=== PATIENT | female | born 1945 | race Caucasian/White ===

== ENCOUNTER 2016-09-06 12:44 | Inpatient (IN) | payer MEDICARE ==
[~2016-09-06] VITALS: Ht 152.4 cm; Wt 65.7 kg
[~2016-09-06 12:44] MED LIST: BUDE180H IH; DICL-290 PO; DOCU250C91 PO; FOLI1TAB15 PO; FURO20 PO; PANT40TA PO; POTA10TA14 PO; THERAGRAN M1 TA1 PO
[2016-09-06 13:12] LABS: GLUCOSE,POINT OF CARE 108 MG/DL (70-110)
[2016-09-06] MEDS ORDERED: DiphenhydrAMINE HCL 50 MG/ML VIAL IM ONE (14:45)
[2016-09-06] MEDS ORDERED: HALOPERIDOL LACTATE 5 MG/ML VIAL IM ONE (14:45)
[2016-09-06] MEDS ORDERED: LORazepam 2 MG/ML VIAL IM ONE (14:45)
[2016-09-06 15:18] LABS: BASOPHILS % (AUTO) 1.1 % (0.0-2.0); EOSINOPHILS # (AUTO) 0.22 K/uL (0.00-0.70); EOSINOPHILS % (AUTO) 2.54 % (1.0-6.0); HEMATOCRIT 42.6 % (36-46); HEMOGLOBIN 14.4 g/dL (12.0-16.0); LYMPHOCYTES # (AUTO) 1.8 K/uL (1.0-4.8); LYMPHOCYTES % (AUTO) 20.4 % (22.0-44.0); MEAN CORPUSCULAR HEMOGLOBIN 30.8 pg (26.0-34.0); MEAN CORPUSCULAR HGB CONC 33.8 G/dL (31.0-37.0); MEAN CORPUSCULAR VOLUME 91 fL (80-100); MONOCYTES % (AUTO) 10.9 % (2.0-9.0); NEUTROPHILS # (AUTO) 5.7 K/uL (1.8-7.7); PLATELET COUNT (AUTO) 238 K/uL (150-450); RED BLOOD CELL COUNT(AUTO) 4.67 MIL/uL (4.00-5.20); RED CELL DISTRIBUTION WIDTH 14.5 % (11.5-14.5); WHITE BLOOD COUNT (AUTO) 8.7 K/uL (4.5-11.0)
[2016-09-06 15:21] LABS: ANION GAP 9 mmol/L (8-16); CALCIUM, TOTAL 8.5 mg/dL (8.8-10.5); CARBON DIOXIDE 29 mmol/L (22-29); CHLORIDE 105 mmol/L (98-107); CREATININE 0.64 mg/dL (0.60-1.30); GLOMERULAR FILTR. RATE CALC > 60 mL/min (>60); POTASSIUM 3.4 mmol/L (3.5-5.1); SODIUM SERUM 143 mmol/L (136-145); UREA NITROGEN, BLOOD 13 mg/dL (7-18)
[2016-09-06 15:27] LABS: ALANINE AMINOTRANSFERASE 6 U/L (12-78); ALBUMIN 3.3 g/dL (3.4-5.0); ASPARTATE AMINOTRANSFERASE 26 U/L (15-37); BILIRUBIN,TOTAL 0.7 mg/dL (0.1-1.0); TOTAL PROTEIN, SERUM 6.8 g/dL (6.4-8.2)
[2016-09-06] MEDS ORDERED: LORazepam 2 MG TABLET PO PRN (17:30)
[2016-09-06] MEDS ORDERED: ZOLPIDEM TARTRATE 10 MG TABLET PO PRN (17:30)
[2016-09-06] MEDS ORDERED: HALOPERIDOL 5 MG TABLET PO PRN (17:30)
[2016-09-06 19:36] VITALS: BP 120/53
[2016-09-06] MEDS ORDERED: DENTURE ADHESIVE 68 GM CREAM DT PRN (20:00)
[2016-09-07 08:00] VITALS: BP 111/76
[2016-09-07] MEDS ORDERED: GuaiFENesin/D-METHORPHAN/PHENYLEPH 5 ML LIQUID ORAL.SYG PO PRN (09:30)
[2016-09-07] MEDS ORDERED: LOPERAMIDE HCL 2 MG CAPSULE PO PRN (09:30)
[2016-09-07] MEDS ORDERED: ACETAMINOPHEN 325 MG TABLET PO PRN (09:30)
[2016-09-07] MEDS ORDERED: ONDANSETRON HCL 4 MG TABLET PO PRN (09:30)
[2016-09-07] MEDS ORDERED: CloNIDine HCL 0.1 MG TABLET PO PRN (09:30)
[2016-09-07] MEDS ORDERED: IBUPROFEN 600 MG TABLET PO PRN (09:30)
[2016-09-07] MEDS ORDERED: BACITRACIN 28.4 GM OINTMENT TP PRN (09:30)
[2016-09-07] MEDS ORDERED: MAG HYDROX/AL HYDROX/SIMETH ES 30 ML SUSPENSION UDCUP PO PRN (09:30)
[2016-09-07] MEDS ORDERED: POTASSIUM CHLORIDE 20 MEQ ER TABLET PO ONE (09:30)
[2016-09-07] MEDS ORDERED: BENZOCAINE/MENTHOL LOZENGE MM PRN (09:30)
[2016-09-07] MEDS ORDERED: PETROLATUM,WHITE 71 GM JELLY TP PRN (09:30)
[2016-09-07] MEDS ORDERED: MAGNESIUM HYDROXIDE SUSPENSION 30 ML UDCUP PO PRN (09:30)
[2016-09-07] MEDS ORDERED: BENZOCAINE/MENTHOL LOZENGE [8 LOZENGES/PACKET] MM PRN (09:42)
[2016-09-07] MEDS: ALBUTEROL SULFATE HFA 90 MCG/PUFF 8 GM INHALER IH PRN ×2 (10:41→18:10)
[2016-09-07] MEDS: IPRATROPIUM BROMIDE 0.5 MG/2.5 ML NEB SOLUTION NEB PRN ×3 (11:59→23:44)
[2016-09-07 17:00] VITALS: BP 102/63
[2016-09-07] MEDS: ALBUTEROL SULFATE 2.5 MG/0.5 ML NEB SOLUTION NEB PRN ×2 (19:01→23:44)
[2016-09-07] MEDS: OLANZapine 5 MG TABLET PO SCH (20:09)
[2016-09-07] MEDS: DIVALPROEX SODIUM 500 MG ER TABLET PO SCH (20:09)
[2016-09-08] MEDS: ALBUTEROL SULFATE 2.5 MG/0.5 ML NEB SOLUTION NEB PRN ×2 (05:24→20:09)
[2016-09-08] MEDS: IPRATROPIUM BROMIDE 0.5 MG/2.5 ML NEB SOLUTION NEB PRN ×2 (05:24→20:09)
[2016-09-08 05:50] VITALS: BP 118/70
[2016-09-08 08:15] LABS: CHOL/HDL RATIO 2.7 (3.9-5.7); POTASSIUM 3.9 mmol/L (3.5-5.1); THYROID STIMULATING HORMONE 2.98 uIU/mL (0.36-3.74)
[2016-09-08 09:14] VITALS: BP 116/70
[2016-09-08] MEDS: ALBUTEROL SULFATE HFA 90 MCG/PUFF 8 GM INHALER IH PRN (10:35)
[2016-09-08] MEDS: AZITHROMYCIN 250 MG TABLET PO SCH (14:41)
[2016-09-08 16:47] VITALS: BP 108/64
[2016-09-08] MEDS: DIVALPROEX SODIUM 500 MG ER TABLET PO SCH (21:00)
[2016-09-08] MEDS: OLANZapine 5 MG TABLET PO SCH (21:00)
[2016-09-09] MEDS ORDERED: 0.9% SODIUM CHLORIDE 5 ML NEB SOLUTION NEB ONE (00:26)
[2016-09-09] MEDS: IPRATROPIUM BROMIDE 0.5 MG/2.5 ML NEB SOLUTION NEB PRN ×3 (00:30→11:22)
[2016-09-09] MEDS: ALBUTEROL SULFATE 2.5 MG/0.5 ML NEB SOLUTION NEB PRN ×3 (00:30→11:22)
[2016-09-09 08:07] VITALS: BP 129/96
[2016-09-09] MEDS ORDERED: FUROSEMIDE 20 MG TABLET PO SCH (09:00)
[2016-09-09] MEDS: AZITHROMYCIN 250 MG TABLET PO SCH (09:13)
[2016-09-09] MEDS: ALBUTEROL SULFATE HFA 90 MCG/PUFF 8 GM INHALER IH PRN (09:15)
[2016-09-09] MEDS ORDERED: OLAN5TAB2 PO (13:31)
[2016-09-09] MEDS ORDERED: DIVA500T52 PO (13:31)
[2016-09-09] MEDS ORDERED: AZIT250T6 PO (13:34)
== END 2016-09-09 14:45 | disposition home or self-care (01) | DRG 885 ==
LOC: EEVIPCON 12:46 → EMS 12:46 → 3EC 18:11 → 3EI 09-07 12:28
DX: F25.1 Schizoaffective disorder, depressive type (principal); R45.851 Suicidal ideations; E11.9 Type 2 diabetes mellitus without complications; J44.9 Chronic obstructive pulmonary disease, unspecified; I50.9 Heart failure, unspecified; I11.0 Hypertensive heart disease with heart failure; K21.9 Gastro-esophageal reflux disease without esophagitis; F31.9 Bipolar disorder, unspecified; M79.7 Fibromyalgia; E87.6 Hypokalemia; E83.51 Hypocalcemia; M19.90 Unspecified osteoarthritis, unspecified site; F17.210 Nicotine dependence, cigarettes, uncomplicated; Z88.0 Allergy status to penicillin; Z88.1 Allergy status to other antibiotic agents; Z88.8 Allergy status to other drugs, medicaments and biological substances; Z91.048 Other nonmedicinal substance allergy status; Z79.899 Other long term (current) drug therapy; Z71.6 Tobacco abuse counseling; Z83.3 Family history of diabetes mellitus; Z82.49 Family history of ischemic heart disease and other diseases of the circulatory system
CPT/HCPCS: 71020; 82306; 82962; 84132; 84443; 94640; 96372; 99285; G0480; J1200; J1630; J2060; J3535; Q0162

== ENCOUNTER 2016-09-12 23:07 | Emergency (ER) | payer MEDICARE ==
[~2016-09-12] VITALS: Ht 152.4 cm; Wt 55.0 kg
[~2016-09-12 23:07] MED LIST changes: +AZIT250T6 PO; -BUDE180H IH; -DICL-290 PO; +DIVA500T52 PO; -DOCU250C91 PO; -FOLI1TAB15 PO; +OLAN5TAB2 PO; -PANT40TA PO; -POTA10TA14 PO
[2016-09-12] MEDS ORDERED: IPRATROPIUM BROMIDE 0.5 MG/2.5 ML NEB SOLUTION NEB ONE (23:45)
[2016-09-12] MEDS ORDERED: ALBUTEROL SULFATE 5 MG/ML 20 ML NEB SOLN [BULK] NEB ONE (23:45)
[2016-09-12] MEDS ORDERED: LORazepam 2 MG TABLET PO ONE (23:45)
[2016-09-12] MEDS ORDERED: 0.9% SODIUM CHLORIDE 5 ML NEB SOLUTION NEB ONE (23:52)
[2016-09-12 23:56] LABS: GLUCOSE,POINT OF CARE 120 MG/DL (70-110)
[2016-09-13] MEDS ORDERED: IPRATROPIUM BROMIDE 0.5 MG/2.5 ML NEB SOLUTION NEB ONE (02:45)
[2016-09-13] MEDS ORDERED: ALBUTEROL SULFATE 5 MG/ML 20 ML NEB SOLN [BULK] NEB ONE (02:45)
[2016-09-13] MEDS ORDERED: 0.9% SODIUM CHLORIDE 15 ML NEB SOLUTION NEB ONE (03:08)
[2016-09-13 05:48] VITALS: BP 112/59
== END 2016-09-13 06:58 | disposition home or self-care (01) ==
LOC: EMS 23:08
DX: J44.9 Chronic obstructive pulmonary disease, unspecified (principal); G62.9 Polyneuropathy, unspecified; I11.0 Hypertensive heart disease with heart failure; I50.9 Heart failure, unspecified; E11.9 Type 2 diabetes mellitus without complications; F17.210 Nicotine dependence, cigarettes, uncomplicated; Z88.0 Allergy status to penicillin; Z88.1 Allergy status to other antibiotic agents
CPT/HCPCS: 82962; 94644; 94645; 99285

== ENCOUNTER 2016-09-24 23:57 | Inpatient (IN) | payer MEDICARE ==
[~2016-09-24] VITALS: Ht 149.9 cm; Wt 60.8 kg
[2016-09-25] MEDS ORDERED: [UNRECOGNIZED DRUG - CODE] PO (00:07)
[2016-09-25 00:22] LABS: GLUCOSE,POINT OF CARE 104 MG/DL (70-110)
[2016-09-25 02:15] LABS: BASOPHILS % (AUTO) 0.2 % (0.0-2.0); EOSINOPHILS % (AUTO) 0.8 % (1.0-6.0); HEMATOCRIT 46.1 % (36-46); HEMOGLOBIN 14.8 g/dL (12.0-16.0); LYMPHOCYTES # (AUTO) 1.8 K/uL (1.0-4.8); LYMPHOCYTES % (AUTO) 16.1 % (22.0-44.0); MEAN CORPUSCULAR HEMOGLOBIN 29.7 pg (26.0-34.0); MEAN CORPUSCULAR HGB CONC 32.1 G/dL (31.0-37.0); MEAN CORPUSCULAR VOLUME 92 fL (80-100); MONOCYTES # (AUTO) 1.2 K/uL (0.1-1.0); MONOCYTES % (AUTO) 11.3 % (2.0-9.0); NEUTROPHILS # (AUTO) 7.8 K/uL (1.8-7.7); NEUTROPHILS % (AUTO) 71.6 % (40.0-70.0); PLATELET COUNT (AUTO) 310 K/uL (150-450); RED BLOOD CELL COUNT(AUTO) 4.99 MIL/uL (4.00-5.20); RED CELL DISTRIBUTION WIDTH 13.5 % (11.5-14.5); WHITE BLOOD COUNT (AUTO) 10.9 K/uL (4.5-11.0)
[2016-09-25 02:24] LABS: ALANINE AMINOTRANSFERASE 20 U/L (12-78); ALBUMIN 3.4 g/dL (3.4-5.0); ANION GAP 4 mmol/L (8-16); ASPARTATE AMINOTRANSFERASE 27 U/L (15-37); BILIRUBIN,TOTAL 0.7 mg/dL (0.1-1.0); CALCIUM, TOTAL 8.8 mg/dL (8.8-10.5); CHLORIDE 95 mmol/L (98-107); CREATININE 0.66 mg/dL (0.60-1.30); GLOMERULAR FILTR. RATE CALC > 60 mL/min (>60); POTASSIUM 3.2 mmol/L (3.5-5.1); SODIUM SERUM 140 mmol/L (136-145); TOTAL PROTEIN, SERUM 7.1 g/dL (6.4-8.2); UREA NITROGEN, BLOOD 11 mg/dL (7-18)
[2016-09-25 02:30] LABS: CARBON DIOXIDE 41 mmol/L (22-29)
[2016-09-25 03:00] VITALS: BP 117/69
[2016-09-25] MEDS ORDERED: ZOLPIDEM TARTRATE 10 MG TABLET PO PRN (03:30)
[2016-09-25] MEDS ORDERED: LORazepam 2 MG TABLET PO PRN (03:30)
[2016-09-25] MEDS ORDERED: HALOPERIDOL 5 MG TABLET PO PRN (03:30)
[2016-09-25] MEDS ORDERED: HALOPERIDOL LACTATE 5 MG/ML VIAL IM ONE (04:00)
[2016-09-25] MEDS ORDERED: LORazepam 2 MG/ML VIAL IM ONE (04:00)
[2016-09-25] MEDS ORDERED: POTASSIUM CHLORIDE 20 MEQ ER TABLET PO ONE ×2 (04:15→15:30)
[2016-09-25 07:52] LABS: GLUCOSE,POINT OF CARE 88 MG/DL (70-110)
[2016-09-25 11:02] VITALS: BP 97/56
[2016-09-25] MEDS ORDERED: ACETAMINOPHEN 325 MG TABLET PO PRN (12:15)
[2016-09-25] MEDS ORDERED: MAGNESIUM HYDROXIDE SUSPENSION 30 ML UDCUP PO PRN (12:15)
[2016-09-25] MEDS ORDERED: CloNIDine HCL 0.1 MG TABLET PO PRN (12:15)
[2016-09-25] MEDS ORDERED: LOPERAMIDE HCL 2 MG CAPSULE PO PRN (12:15)
[2016-09-25] MEDS ORDERED: PETROLATUM,WHITE 71 GM JELLY TP PRN (12:15)
[2016-09-25] MEDS ORDERED: ONDANSETRON HCL 4 MG TABLET PO PRN (12:15)
[2016-09-25] MEDS ORDERED: BENZOCAINE/MENTHOL LOZENGE [8 LOZENGES/PACKET] PO PRN (12:15)
[2016-09-25] MEDS ORDERED: DENTURE ADHESIVE 68 GM CREAM DT PRN (12:15)
[2016-09-25] MEDS ORDERED: MAG HYDROX/AL HYDROX/SIMETH ES 30 ML SUSPENSION UDCUP PO PRN (12:15)
[2016-09-25] MEDS ORDERED: GuaiFENesin/D-METHORPHAN/PHENYLEPH 5 ML LIQUID ORAL.SYG PO PRN (12:15)
[2016-09-25] MEDS ORDERED: BACITRACIN 28.4 GM OINTMENT TP PRN (12:15)
[2016-09-25] MEDS ORDERED: IBUPROFEN 600 MG TABLET PO PRN (12:15)
[2016-09-25] MEDS ORDERED: OLANZapine 10 MG TABLET PO SCH (21:00)
[2016-09-25] MEDS ORDERED: OLANZapine 5 MG TABLET PO SCH (21:00)
[2016-09-25] MEDS: OLANZapine 10 MG TABLET PO SCH ×2 (21:00→21:22)
[2016-09-25] MEDS ORDERED: DIVALPROEX SODIUM 500 MG ER TABLET PO SCH (21:00)
[2016-09-25] MEDS: DIVALPROEX SODIUM 500 MG ER TABLET PO SCH ×2 (21:00→21:22)
[2016-09-25 21:20] VITALS: BP 118/59
[2016-09-25 22:49] LABS: APPEARANCE,URINE TURBID (CLEAR); GLUCOSE, URINE (UA) NEGATIVE (NEGATIVE); KETONES,URINE TRACE mg/dL (NEGATIVE); LEUKOCYTE ESTERASE ,URINE LARGE (NEGATIVE); OCCULT BLOOD,URINE LARGE (NEGATIVE); PH,URINE 6.5 (5.0-8.0); PROTEIN,URINE TRACE (NEGATIVE)
[2016-09-25 22:52] LABS: ADD UA MICROSCOPIC YES
[2016-09-25 22:55] LABS: RBC,URINE 26-50 /HPF (0-2); SQUAMOUS EPITHELIAL CELL,UR Few /LPF (None Seen); WBC,URINE 51-100 /HPF (0-5)
[2016-09-26] MEDS: ALBUTEROL SULFATE HFA 90 MCG/PUFF 8 GM INHALER IH PRN ×2 (03:48→18:16)
[2016-09-26] MEDS ORDERED: PNEUMOCOCCAL VACCINE POLYVALENT 0.5 ML VIAL [PPSV23] IM ONE (04:15)
[2016-09-26] MEDS ORDERED: INFLUENZA VIRUS VACCINE QVS 2016-17 (3YR+)/PF 60 MCG/0.5 ML SYRINGE IM ONE (04:15)
[2016-09-26 06:34] LABS: POTASSIUM 3.8 mmol/L (3.5-5.1); SODIUM SERUM 142 mmol/L (136-145)
[2016-09-26 07:13] LABS: VALPROIC ACID < 3 mcg/mL (50-100)
[2016-09-26] MEDS: FUROSEMIDE 20 MG TABLET PO SCH (08:11)
[2016-09-26 09:49] VITALS: BP 116/58
[2016-09-26] MEDS: ETODOLAC 300 MG PO SCH ×2 (12:10→16:10)
[2016-09-26 16:10] VITALS: BP 125/78
[2016-09-26] MEDS: DIVALPROEX SODIUM 500 MG ER TABLET PO SCH (20:02)
[2016-09-26] MEDS: OLANZapine 10 MG TABLET PO SCH (20:02)
[2016-09-27 00:17] VITALS: BP 122/80
[2016-09-27] MEDS: ALBUTEROL SULFATE HFA 90 MCG/PUFF 8 GM INHALER IH PRN ×2 (03:57→14:18)
[2016-09-27] MEDS: CIPROFLOXACIN HCL 500 MG TABLET PO SCH ×2 (08:23→18:27)
[2016-09-27] MEDS: ETODOLAC 300 MG PO SCH ×2 (08:23→18:27)
[2016-09-27] MEDS: FUROSEMIDE 20 MG TABLET PO SCH (08:24)
[2016-09-27] MEDS: POTASSIUM CHLORIDE 8 MEQ ER TABLET PO SCH (08:24)
[2016-09-27 09:38] VITALS: BP 107/64
[2016-09-27] MEDS ORDERED: 0.9% SODIUM CHLORIDE 5 ML NEB SOLUTION NEB ONE (14:34)
[2016-09-27] MEDS: IPRATROPIUM BROMIDE 0.5 MG/2.5 ML NEB SOLUTION NEB PRN (14:42)
[2016-09-27] MEDS: ALBUTEROL SULFATE 2.5 MG/0.5 ML NEB SOLUTION NEB PRN (14:42)
[2016-09-27 16:00] VITALS: BP 107/62
[2016-09-27] MEDS: OLANZapine 10 MG TABLET PO SCH (21:00)
[2016-09-27] MEDS: DIVALPROEX SODIUM 500 MG ER TABLET PO SCH (21:00)
[2016-09-28 04:39] VITALS: BP 132/60
[2016-09-28] MEDS: ALBUTEROL SULFATE HFA 90 MCG/PUFF 8 GM INHALER IH PRN (05:49)
[2016-09-28] MEDS: ALBUTEROL SULFATE 2.5 MG/0.5 ML NEB SOLUTION NEB PRN ×3 (07:19→19:04)
[2016-09-28] MEDS: IPRATROPIUM BROMIDE 0.5 MG/2.5 ML NEB SOLUTION NEB PRN ×3 (07:19→19:05)
[2016-09-28] MEDS: ETODOLAC 300 MG PO SCH ×2 (07:37→16:28)
[2016-09-28] MEDS: CIPROFLOXACIN HCL 500 MG TABLET PO SCH ×2 (07:38→16:28)
[2016-09-28] MEDS: FUROSEMIDE 20 MG TABLET PO SCH (07:38)
[2016-09-28] MEDS: POTASSIUM CHLORIDE 8 MEQ ER TABLET PO SCH (07:38)
[2016-09-28 08:30] VITALS: BP 127/58
[2016-09-28 16:39] VITALS: BP 125/74
[2016-09-28 20:05] VITALS: BP 110/62
[2016-09-28] MEDS: OLANZapine 10 MG TABLET PO SCH (21:00)
[2016-09-28] MEDS: DIVALPROEX SODIUM 500 MG ER TABLET PO SCH (21:00)
[2016-09-28] MEDS ORDERED: DiphenhydrAMINE HCL 50 MG/ML VIAL IM ONE (22:45)
[2016-09-28] MEDS ORDERED: LORazepam 2 MG/ML VIAL IM ONE (22:45)
[2016-09-28] MEDS ORDERED: HALOPERIDOL LACTATE 5 MG/ML VIAL IM ONE (22:45)
[2016-09-29] MEDS: IPRATROPIUM BROMIDE 0.5 MG/2.5 ML NEB SOLUTION NEB PRN ×3 (07:51→22:45)
[2016-09-29] MEDS: ALBUTEROL SULFATE 2.5 MG/0.5 ML NEB SOLUTION NEB PRN ×3 (07:51→22:45)
[2016-09-29] MEDS: ETODOLAC 300 MG PO SCH ×2 (08:09→16:10)
[2016-09-29] MEDS: CIPROFLOXACIN HCL 500 MG TABLET PO SCH ×2 (08:10→16:10)
[2016-09-29] MEDS: FUROSEMIDE 20 MG TABLET PO SCH (08:10)
[2016-09-29] MEDS: POTASSIUM CHLORIDE 8 MEQ ER TABLET PO SCH (08:11)
[2016-09-29 16:06] VITALS: BP 143/59
[2016-09-29] MEDS: DIVALPROEX SODIUM 500 MG ER TABLET PO SCH (20:52)
[2016-09-29] MEDS: OLANZapine 10 MG TABLET PO SCH (20:53)
[2016-09-29] MEDS ORDERED: ALBUTEROL SULFATE 2.5 MG/0.5 ML NEB SOLUTION NEB ONE (23:59)
[2016-09-29] MEDS ORDERED: 0.9% SODIUM CHLORIDE 5 ML NEB SOLUTION NEB ONE (23:59)
[2016-09-30 06:15] VITALS: BP 110/72
[2016-09-30] MEDS: ETODOLAC 300 MG PO SCH ×2 (08:11→17:17)
[2016-09-30] MEDS: FUROSEMIDE 20 MG TABLET PO SCH ×2 (08:11→17:19)
[2016-09-30] MEDS: CIPROFLOXACIN HCL 500 MG TABLET PO SCH ×2 (08:11→17:17)
[2016-09-30] MEDS: POTASSIUM CHLORIDE 8 MEQ ER TABLET PO SCH (08:11)
[2016-09-30 08:30] VITALS: BP 134/73
[2016-09-30] MEDS: IPRATROPIUM BROMIDE 0.5 MG/2.5 ML NEB SOLUTION NEB PRN ×3 (13:05→22:29)
[2016-09-30] MEDS: ALBUTEROL SULFATE 2.5 MG/0.5 ML NEB SOLUTION NEB PRN ×3 (13:05→22:29)
[2016-09-30 18:30] VITALS: BP 119/82
[2016-09-30] MEDS: DIVALPROEX SODIUM 500 MG ER TABLET PO SCH (20:28)
[2016-09-30] MEDS: OLANZapine 10 MG TABLET PO SCH (20:30)
[2016-10-01 02:39] VITALS: BP 124/83
[2016-10-01] MEDS: IPRATROPIUM BROMIDE 0.5 MG/2.5 ML NEB SOLUTION NEB PRN ×2 (03:00→09:13)
[2016-10-01] MEDS: ALBUTEROL SULFATE 2.5 MG/0.5 ML NEB SOLUTION NEB PRN ×2 (03:00→09:13)
[2016-10-01] MEDS: ALBUTEROL SULFATE HFA 90 MCG/PUFF 8 GM INHALER IH PRN (04:12)
[2016-10-01 07:25] LABS: ALANINE AMINOTRANSFERASE 19 U/L (12-78); ALBUMIN 3.3 g/dL (3.4-5.0); ANION GAP 6 mmol/L (8-16); ASPARTATE AMINOTRANSFERASE 17 U/L (15-37); BILIRUBIN,TOTAL 0.3 mg/dL (0.1-1.0); CALCIUM, TOTAL 8.6 mg/dL (8.8-10.5); CARBON DIOXIDE 34 mmol/L (22-29); CHLORIDE 102 mmol/L (98-107); GLOMERULAR FILTR. RATE CALC > 60 mL/min (>60); POTASSIUM 4.5 mmol/L (3.5-5.1); SODIUM SERUM 142 mmol/L (136-145); TOTAL PROTEIN, SERUM 6.6 g/dL (6.4-8.2); UREA NITROGEN, BLOOD 15 mg/dL (7-18)
[2016-10-01] MEDS: POTASSIUM CHLORIDE 8 MEQ ER TABLET PO SCH (08:27)
[2016-10-01] MEDS: FUROSEMIDE 20 MG TABLET PO SCH (08:27)
[2016-10-01] MEDS: ETODOLAC 300 MG PO SCH (08:27)
[2016-10-01] MEDS: CIPROFLOXACIN HCL 500 MG TABLET PO SCH (08:27)
[2016-10-01] MEDS ORDERED: SLOWK8 PO (11:18)
[2016-10-01] MEDS ORDERED: FURO20 PO (11:19)
[2016-10-01] MEDS ORDERED: CIPR-278 PO (11:20)
== END 2016-10-01 12:00 | disposition home or self-care (01) | DRG 885 ==
LOC: EMS 09-25 → 3EC 09-25 03:11
DX: F25.1 Schizoaffective disorder, depressive type (principal); F20.0 Paranoid schizophrenia; J44.9 Chronic obstructive pulmonary disease, unspecified; E11.9 Type 2 diabetes mellitus without complications; M79.7 Fibromyalgia; F17.210 Nicotine dependence, cigarettes, uncomplicated; I11.0 Hypertensive heart disease with heart failure; I50.9 Heart failure, unspecified; E87.6 Hypokalemia; E55.9 Vitamin D deficiency, unspecified; B96.5 Pseudomonas (aeruginosa) (mallei) (pseudomallei) as the cause of diseases classified elsewhere; M19.90 Unspecified osteoarthritis, unspecified site; K21.9 Gastro-esophageal reflux disease without esophagitis; Z71.6 Tobacco abuse counseling; Z91.14 Patient's other noncompliance with medication regimen; Z88.1 Allergy status to other antibiotic agents; Z88.0 Allergy status to penicillin; Z88.8 Allergy status to other drugs, medicaments and biological substances; Z91.048 Other nonmedicinal substance allergy status
CPT/HCPCS: 82962; 84132; 84295; 87081; 87086; 94640; 96372; 99285; G0480; J1200; J1630; J2060; J3535

== ENCOUNTER 2017-12-11 10:29 | Inpatient (IN) | payer MEDICARE ==
[~2017-12-11] VITALS: Ht 147.3 cm; Wt 78.0 kg
[~2017-12-11 10:29] MED LIST changes: -AZIT250T6 PO; +CIPR-278 PO; +ETOD300C13 PO; +SLOWK8 PO; -THERAGRAN M1 TA1 PO
[2017-12-11 11:49] LABS: BASOPHILS % (AUTO) 0.4 % (0.0-2.0); EOSINOPHILS % (AUTO) 0.4 % (1.0-6.0); HEMATOCRIT 42.6 % (36-46); HEMOGLOBIN 14.2 g/dL (12.0-16.0); LYMPHOCYTES # (AUTO) 1.2 K/uL (1.0-4.8); LYMPHOCYTES % (AUTO) 11.2 % (22.0-44.0); MEAN CORPUSCULAR HEMOGLOBIN 29.9 pg (26.0-34.0); MEAN CORPUSCULAR HGB CONC 33.2 G/dL (31.0-37.0); MEAN CORPUSCULAR VOLUME 90 fL (80-100); MONOCYTES # (AUTO) 1.2 K/uL (0.1-1.0); MONOCYTES % (AUTO) 11.3 % (2.0-9.0); NEUTROPHILS # (AUTO) 8.5 K/uL (1.8-7.7); NEUTROPHILS % (AUTO) 76.7 % (40.0-70.0); PLATELET COUNT (AUTO) 317 K/uL (150-450); RED BLOOD CELL COUNT(AUTO) 4.74 MIL/uL (4.00-5.20); RED CELL DISTRIBUTION WIDTH 14.3 % (11.5-14.5)
[2017-12-11 12:00] LABS: ANION GAP 4 mmol/L (8-16); CALCIUM, TOTAL 8.7 mg/dL (8.8-10.5); CARBON DIOXIDE 36 mmol/L (22-29); CHLORIDE 101 mmol/L (98-107); GLOMERULAR FILTR. RATE CALC > 60 mL/min (>60); GLUCOSE,RANDOM 100 mg/dL (70-110); POTASSIUM 3.3 mmol/L (3.5-5.1); SODIUM SERUM 141 mmol/L (136-145); UREA NITROGEN, BLOOD 7 mg/dL (7-18)
[2017-12-11 12:07] LABS: ALANINE AMINOTRANSFERASE 19 U/L (12-78); ALBUMIN 3.5 g/dL (3.4-5.0); ALKALINE PHOSPHATASE 104 U/L (46-116); ASPARTATE AMINOTRANSFERASE 20 U/L (15-37); BILIRUBIN,TOTAL 0.5 mg/dL (0.1-1.0); TOTAL PROTEIN, SERUM 7.5 g/dL (6.4-8.2)
[2017-12-11 12:23] LABS: VALPROIC ACID < 3 mcg/mL (50-100)
[2017-12-11] MEDS ORDERED: ONDANSETRON HCL 4 MG/2 ML VIAL IVP PRN (13:45)
[2017-12-11] MEDS ORDERED: MAGNESIUM HYDROXIDE SUSPENSION 30 ML UDCUP PO PRN (13:45)
[2017-12-11] MEDS ORDERED: IPRATROPIUM BROMIDE 0.5 MG/2.5 ML NEB SOLUTION NEB PRN (13:45)
[2017-12-11] MEDS ORDERED: ACETAMINOPHEN 325 MG TABLET PO PRN (13:45)
[2017-12-11] MEDS ORDERED: ALBUTEROL SULFATE 2.5 MG/0.5 ML NEB SOLUTION NEB PRN (13:45)
[2017-12-11] MEDS: IPRATROPIUM BROMIDE 0.5 MG/2.5 ML NEB SOLUTION NEB SCH ×4 (15:09→19:28)
[2017-12-11] MEDS: HEPARIN SODIUM,PORCINE 5,000 UNITS/ML VIAL SQ SCH ×2 (16:00→23:22)
[2017-12-11] MEDS ORDERED: TIOT185 IH (16:45)
[2017-12-11] MEDS ORDERED: BUME1TAB17 PO (16:45)
[2017-12-11] MEDS ORDERED: PRED10 PO (16:45)
[2017-12-11] MEDS ORDERED: HYDR-4061 PO (16:45)
[2017-12-11] MEDS ORDERED: KDUR20 PO (16:45)
[2017-12-11] MEDS ORDERED: PANT40TA25 PO (16:45)
[2017-12-11] MEDS ORDERED: ACET250T27 PO (16:45)
[2017-12-11] MEDS ORDERED: BUDE10.2 IH (16:45)
[2017-12-11] MEDS: ALBUTEROL SULFATE 2.5 MG/0.5 ML NEB SOLUTION NEB SCH ×4 (19:25→19:29)
[2017-12-11] MEDS: DOCUSATE SODIUM 100 MG CAPSULE PO SCH ×2 (19:51→21:00)
[2017-12-11 22:31] VITALS: BP 125/79
[2017-12-11] MEDS ORDERED: POTASSIUM CHLORIDE 20 MEQ ER TABLET PO PRN (23:00)
[2017-12-11] MEDS ORDERED: POTASSIUM CHL 10 MEQ/WATER 50 ML IV PRN (23:00)
[2017-12-12] MEDS: ACETAMINOPHEN 325 MG TABLET PO PRN (01:00)
[2017-12-12 05:54] VITALS: BP 123/67
[2017-12-12 07:27] VITALS: BP 125/73
[2017-12-12] MEDS: PANTOPRAZOLE SODIUM 40 MG DR TABLET PO SCH (08:41)
[2017-12-12] MEDS: ASPIRIN 81 MG CHEWABLE TABLET PO SCH ×2 (08:41→08:46)
[2017-12-12] MEDS: DOCUSATE SODIUM 100 MG CAPSULE PO SCH ×2 (08:41→20:24)
[2017-12-12] MEDS: HEPARIN SODIUM,PORCINE 5,000 UNITS/ML VIAL SQ SCH ×3 (08:41→23:24)
[2017-12-12] MEDS: IPRATROPIUM BROMIDE 0.5 MG/2.5 ML NEB SOLUTION NEB PRN ×4 (09:43→22:46)
[2017-12-12] MEDS: ALBUTEROL SULFATE 2.5 MG/0.5 ML NEB SOLUTION NEB PRN ×4 (09:43→22:46)
[2017-12-12] MEDS: MULTIVITAMINS WITH MINERALS, THERAPEUTIC TABLET PO SCH (11:58)
[2017-12-12] MEDS: PredniSONE 20 MG TABLET PO SCH (11:58)
[2017-12-12 12:06] VITALS: BP 128/82
[2017-12-12 12:34] LABS: GLUCOMETER DEV NAME(LOC) 6N 1E; GLUCOSE,POINT OF CARE 140 MG/DL (70-110)
[2017-12-12 12:34] LABS: GLUCOMETER DEV NAME(LOC) 6N 1E; GLUCOSE,POINT OF CARE 180 MG/DL (70-110)
[2017-12-12 15:54] VITALS: BP 124/69
[2017-12-12 17:05] LABS: AMPHET/METH SCREEN,URINE NEGATIVE (NEGATIVE); APPEARANCE,URINE CLOUDY (CLEAR); BARBITURATE SCREEN, URINE NEGATIVE (NEGATIVE); BENZODIAZEPINES SCREEN,URINE NEGATIVE (NEGATIVE); BILIRUBIN,URINE NEGATIVE (NEGATIVE); CANNABINOID SCREEN,URINE NEGATIVE (NEGATIVE); COCAINE SCREEN,URINE NEGATIVE (NEGATIVE); GLUCOSE, URINE (UA) NEGATIVE (NEGATIVE); KETONES,URINE NEGATIVE (NEGATIVE); LEUKOCYTE ESTERASE ,URINE MODERATE (NEGATIVE); METHADONE SCREEN, URINE NEGATIVE (NEGATIVE); NITRATE,URINE NEGATIVE (NEGATIVE); OCCULT BLOOD,URINE SMALL (NEGATIVE); OPIATE SCREEN,URINE NEGATIVE (NEGATIVE); PROTEIN,URINE NEGATIVE (NEGATIVE)
[2017-12-12 17:07] LABS: PHENCYCLIDINE SCREEN,URINE NEGATIVE (NEGATIVE)
[2017-12-12 18:01] LABS: BACTERIA,URINE Moderate /HPF (None Seen); RBC,URINE 0-2 /HPF (0-2)
[2017-12-12 18:02] LABS: CALCIUM OXALATE CRYSTALS,UR Rare /LPF (None Seen); SQUAMOUS EPITHELIAL CELL,UR Few /LPF (None Seen)
[2017-12-12 18:14] LABS: AMORPHOUS SEDIMENT,UR Few /LPF (None Seen)
[2017-12-12 18:53] LABS: GLUCOMETER DEV NAME(LOC) 6N 1E; GLUCOSE,POINT OF CARE 188 MG/DL (70-110)
[2017-12-12 20:04] VITALS: BP 129/71
[2017-12-12 21:03] LABS: GLUCOMETER DEV NAME(LOC) 6N 1E; GLUCOSE,POINT OF CARE 234 MG/DL (70-110)
[2017-12-13] VITALS (7 sets, daily range): BP systolic 107–125; BP diastolic 65–75
[2017-12-13] MEDS: ACETAMINOPHEN 325 MG TABLET PO PRN ×4 (01:01→23:35)
[2017-12-13] MEDS: IPRATROPIUM BROMIDE 0.5 MG/2.5 ML NEB SOLUTION NEB PRN ×3 (02:18→11:27)
[2017-12-13] MEDS: ALBUTEROL SULFATE 2.5 MG/0.5 ML NEB SOLUTION NEB PRN ×3 (02:18→11:27)
[2017-12-13 06:28] LABS: GLUCOMETER DEV NAME(LOC) 6N 2D; GLUCOSE,POINT OF CARE 156 MG/DL (70-110)
[2017-12-13 06:28] LABS: BASOPHILS % (AUTO) 0.2 % (0.0-2.0); EOSINOPHILS % (AUTO) 1.2 % (1.0-6.0); HEMATOCRIT 37.7 % (36-46); HEMOGLOBIN 12.6 g/dL (12.0-16.0); LYMPHOCYTES # (AUTO) 1.6 K/uL (1.0-4.8); LYMPHOCYTES % (AUTO) 17.4 % (22.0-44.0); MEAN CORPUSCULAR HEMOGLOBIN 30.3 pg (26.0-34.0); MEAN CORPUSCULAR HGB CONC 33.3 G/dL (31.0-37.0); MEAN CORPUSCULAR VOLUME 91 fL (80-100); MONOCYTES # (AUTO) 1.5 K/uL (0.1-1.0); MONOCYTES % (AUTO) 15.7 % (2.0-9.0); NEUTROPHILS # (AUTO) 6.1 K/uL (1.8-7.7); NEUTROPHILS % (AUTO) 65.5 % (40.0-70.0); PLATELET COUNT (AUTO) 259 K/uL (150-450); RED BLOOD CELL COUNT(AUTO) 4.15 MIL/uL (4.00-5.20); RED CELL DISTRIBUTION WIDTH 14.2 % (11.5-14.5)
[2017-12-13 06:48] LABS: ANION GAP 3 mmol/L (8-16); CALCIUM, TOTAL 8.1 mg/dL (8.8-10.5); CARBON DIOXIDE 34 mmol/L (22-29); CHLORIDE 103 mmol/L (98-107); CREATININE 0.57 mg/dL (0.60-1.30); GLOMERULAR FILTR. RATE CALC > 60 mL/min (>60); GLUCOSE,RANDOM 160 mg/dL (70-110); POTASSIUM 3.6 mmol/L (3.5-5.1); SODIUM SERUM 140 mmol/L (136-145); UREA NITROGEN, BLOOD 3 mg/dL (7-18)
[2017-12-13] MEDS: ASPIRIN 81 MG CHEWABLE TABLET PO SCH (09:00)
[2017-12-13] MEDS: PANTOPRAZOLE SODIUM 40 MG DR TABLET PO SCH (09:17)
[2017-12-13] MEDS: PredniSONE 20 MG TABLET PO SCH (09:17)
[2017-12-13] MEDS: HEPARIN SODIUM,PORCINE 5,000 UNITS/ML VIAL SQ SCH ×3 (09:17→23:34)
[2017-12-13] MEDS: DOCUSATE SODIUM 100 MG CAPSULE PO SCH ×2 (09:17→20:15)
[2017-12-13] MEDS: MULTIVITAMINS WITH MINERALS, THERAPEUTIC TABLET PO SCH (09:17)
[2017-12-13] MEDS ORDERED: DEXTROSE 50%-WATER 25 GM/50 ML SYRINGE IVP PRN (12:30)
[2017-12-13 12:39] LABS: GLUCOMETER DEV NAME(LOC) 6N 2D; GLUCOSE,POINT OF CARE 167 MG/DL (70-110)
[2017-12-13] MEDS: BUDESONIDE/FORMOTEROL FUMARATE 160-4.5 MCG/PUFF 6.9 GM INHALER IH SCH ×2 (14:29→20:16)
[2017-12-13] MEDS: AZITHROMYCIN 500 MG/NS 250 ML IV SCH (14:29)
[2017-12-13] MEDS: MONTELUKAST SODIUM 10 MG TABLET PO SCH (14:29)
[2017-12-13] MEDS: ALBUTEROL SULFATE 2.5 MG/0.5 ML NEB SOLUTION NEB SCH ×3 (15:46→22:38)
[2017-12-13] MEDS: IPRATROPIUM BROMIDE 0.5 MG/2.5 ML NEB SOLUTION NEB SCH ×3 (15:47→22:38)
[2017-12-13 17:58] LABS: GLUCOMETER DEV NAME(LOC) 6N 2D; GLUCOSE,POINT OF CARE 157 MG/DL (70-110)
[2017-12-13] MEDS: MethylPREDNISolone SOD SUCC 125 MG/2 ML VIAL IVP SCH ×2 (18:54→23:35)
[2017-12-13] MEDS: MIRTAZAPINE 15 MG TABLET PO SCH (20:18)
[2017-12-13] MEDS ORDERED: OLANZapine 10 MG TABLET PO SCH (21:00)
[2017-12-13 21:07] LABS: GLUCOMETER DEV NAME(LOC) 6N 1E; GLUCOSE,POINT OF CARE 138 MG/DL (70-110)
[2017-12-14] MEDS: ALBUTEROL SULFATE 2.5 MG/0.5 ML NEB SOLUTION NEB SCH ×6 (02:35→23:18)
[2017-12-14] MEDS: IPRATROPIUM BROMIDE 0.5 MG/2.5 ML NEB SOLUTION NEB SCH ×6 (02:35→23:18)
[2017-12-14 03:51] VITALS: BP 128/74
[2017-12-14] MEDS: ACETAMINOPHEN 325 MG TABLET PO PRN (04:43)
[2017-12-14 05:38] LABS: GLUCOMETER DEV NAME(LOC) 6N 2D; GLUCOSE,POINT OF CARE 175 MG/DL (70-110)
[2017-12-14] MEDS: PANTOPRAZOLE SODIUM 40 MG DR TABLET PO SCH (08:30)
[2017-12-14] MEDS: DOCUSATE SODIUM 100 MG CAPSULE PO SCH ×2 (08:30→20:49)
[2017-12-14] MEDS: HEPARIN SODIUM,PORCINE 5,000 UNITS/ML VIAL SQ SCH ×3 (08:30→23:37)
[2017-12-14] MEDS: ARIPiprazole 5 MG TABLET PO SCH ×2 (08:31→08:34)
[2017-12-14] MEDS: MONTELUKAST SODIUM 10 MG TABLET PO SCH (08:31)
[2017-12-14] MEDS: BUDESONIDE/FORMOTEROL FUMARATE 160-4.5 MCG/PUFF 6.9 GM INHALER IH SCH ×2 (08:31→20:49)
[2017-12-14] MEDS: HYDROCODONE/ACETAMINOPHEN 5-325 MG TABLET PO PRN ×2 (09:34→20:49)
[2017-12-14] MEDS: ASPIRIN 81 MG CHEWABLE TABLET PO SCH (09:34)
[2017-12-14] MEDS: CHOLECALCIFEROL (VIT D3) 1,000 UNITS TABLET PO SCH (09:35)
[2017-12-14] MEDS: MULTIVITAMINS WITH MINERALS, THERAPEUTIC TABLET PO SCH (09:35)
[2017-12-14 10:41] VITALS: BP 117/60
[2017-12-14 12:28] LABS: GLUCOMETER DEV NAME(LOC) 6N 2D; GLUCOSE,POINT OF CARE 185 MG/DL (70-110)
[2017-12-14] MEDS: INSULIN LISPRO 100 UNITS/ML SQ PRN ×2 (12:57→20:59)
[2017-12-14] MEDS: TIOTROPIUM BROMIDE 18 MCG/INH HANDIHALER [5] IH SCH (12:57)
[2017-12-14] MEDS ORDERED: SODIUM CHLORIDE 0.9% 250 ML IV ONE (14:20)
[2017-12-14] MEDS: AZITHROMYCIN 500 MG/NS 250 ML IV SCH (14:26)
[2017-12-14 16:10] VITALS: BP 110/61
[2017-12-14] MEDS: MethylPREDNISolone SOD SUCC 40 MG/ML VIAL IVP SCH ×2 (17:28→23:37)
[2017-12-14 19:43] LABS: GLUCOMETER DEV NAME(LOC) 6N 1E; GLUCOSE,POINT OF CARE 91 MG/DL (70-110)
[2017-12-14 20:07] VITALS: BP 138/68
[2017-12-14] MEDS: MIRTAZAPINE 15 MG TABLET PO SCH ×2 (20:45→21:00)
[2017-12-14 22:48] LABS: GLUCOMETER DEV NAME(LOC) 6N 1E; GLUCOSE,POINT OF CARE 159 MG/DL (70-110)
[2017-12-14 23:30] VITALS: BP 134/66
[2017-12-15] MEDS: IPRATROPIUM BROMIDE 0.5 MG/2.5 ML NEB SOLUTION NEB SCH ×6 (02:28→23:29)
[2017-12-15] MEDS: ALBUTEROL SULFATE 2.5 MG/0.5 ML NEB SOLUTION NEB SCH ×6 (02:28→23:29)
[2017-12-15 04:00] VITALS: BP 136/72
[2017-12-15] MEDS: INSULIN LISPRO 100 UNITS/ML SQ PRN ×4 (05:44→20:54)
[2017-12-15 06:24] LABS: GLUCOMETER DEV NAME(LOC) 6N 2D; GLUCOSE,POINT OF CARE 195 MG/DL (70-110)
[2017-12-15 07:21] VITALS: BP 117/57
[2017-12-15] MEDS: PANTOPRAZOLE SODIUM 40 MG DR TABLET PO SCH (07:59)
[2017-12-15] MEDS: MethylPREDNISolone SOD SUCC 40 MG/ML VIAL IVP SCH ×3 (08:52→23:39)
[2017-12-15] MEDS: MULTIVITAMINS WITH MINERALS, THERAPEUTIC TABLET PO SCH (08:52)
[2017-12-15] MEDS: HEPARIN SODIUM,PORCINE 5,000 UNITS/ML VIAL SQ SCH ×3 (08:52→23:39)
[2017-12-15] MEDS: DOCUSATE SODIUM 100 MG CAPSULE PO SCH ×2 (08:52→20:48)
[2017-12-15] MEDS: BUDESONIDE/FORMOTEROL FUMARATE 160-4.5 MCG/PUFF 6.9 GM INHALER IH SCH ×2 (08:52→20:48)
[2017-12-15] MEDS: MONTELUKAST SODIUM 10 MG TABLET PO SCH (08:53)
[2017-12-15] MEDS: CHOLECALCIFEROL (VIT D3) 1,000 UNITS TABLET PO SCH (08:53)
[2017-12-15] MEDS: ASPIRIN 81 MG CHEWABLE TABLET PO SCH (08:53)
[2017-12-15] MEDS: ARIPiprazole 5 MG TABLET PO SCH (09:00)
[2017-12-15 12:37] LABS: GLUCOMETER DEV NAME(LOC) 6N 2D; GLUCOSE,POINT OF CARE 188 MG/DL (70-110)
[2017-12-15] MEDS: AZITHROMYCIN 500 MG/NS 250 ML IV SCH (17:50)
[2017-12-15] MEDS: TIOTROPIUM BROMIDE 18 MCG/INH HANDIHALER [5] IH SCH (17:50)
[2017-12-15 19:16] VITALS: BP 134/80
[2017-12-15 19:23] LABS: GLUCOMETER DEV NAME(LOC) 6N 2D; GLUCOSE,POINT OF CARE 155 MG/DL (70-110)
[2017-12-15] MEDS: MIRTAZAPINE 15 MG TABLET PO SCH (20:49)
[2017-12-15 21:17] LABS: GLUCOMETER DEV NAME(LOC) 6N 1E; GLUCOSE,POINT OF CARE 150 MG/DL (70-110)
[2017-12-15 23:18] VITALS: BP 113/85
[2017-12-15] MEDS: HYDROCODONE/ACETAMINOPHEN 5-325 MG TABLET PO PRN (23:44)
[2017-12-16] MEDS: IPRATROPIUM BROMIDE 0.5 MG/2.5 ML NEB SOLUTION NEB SCH ×6 (02:41→22:54)
[2017-12-16] MEDS: ALBUTEROL SULFATE 2.5 MG/0.5 ML NEB SOLUTION NEB SCH ×6 (02:41→22:54)
[2017-12-16 04:15] VITALS: BP 126/76
[2017-12-16] MEDS: HYDROCODONE/ACETAMINOPHEN 5-325 MG TABLET PO PRN (04:31)
[2017-12-16] MEDS: PANTOPRAZOLE SODIUM 40 MG DR TABLET PO SCH ×2 (05:08→09:28)
[2017-12-16] MEDS: INSULIN LISPRO 100 UNITS/ML SQ PRN ×4 (05:16→20:47)
[2017-12-16 05:43] LABS: GLUCOMETER DEV NAME(LOC) 6N 2D; GLUCOSE,POINT OF CARE 146 MG/DL (70-110)
[2017-12-16 07:51] VITALS: BP 136/67
[2017-12-16] MEDS ORDERED: MethylPREDNISolone SOD SUCC 125 MG/2 ML VIAL IVP SCH (08:00)
[2017-12-16] MEDS ORDERED: PredniSONE 10 MG TABLET PO SCH (09:00)
[2017-12-16] MEDS: ARIPiprazole 5 MG TABLET PO SCH (09:00)
[2017-12-16] MEDS: BUDESONIDE/FORMOTEROL FUMARATE 160-4.5 MCG/PUFF 6.9 GM INHALER IH SCH (09:23)
[2017-12-16] MEDS: TIOTROPIUM BROMIDE 18 MCG/INH HANDIHALER [5] IH SCH (09:24)
[2017-12-16] MEDS: HEPARIN SODIUM,PORCINE 5,000 UNITS/ML VIAL SQ SCH ×3 (09:25→23:44)
[2017-12-16] MEDS: ASPIRIN 81 MG CHEWABLE TABLET PO SCH (09:25)
[2017-12-16] MEDS: MULTIVITAMINS WITH MINERALS, THERAPEUTIC TABLET PO SCH (09:25)
[2017-12-16] MEDS: CHOLECALCIFEROL (VIT D3) 1,000 UNITS TABLET PO SCH (09:26)
[2017-12-16] MEDS: DOCUSATE SODIUM 100 MG CAPSULE PO SCH ×2 (09:26→20:45)
[2017-12-16] MEDS: MONTELUKAST SODIUM 10 MG TABLET PO SCH (09:26)
[2017-12-16 11:42] VITALS: BP 134/68
[2017-12-16] MEDS: AZITHROMYCIN 500 MG/NS 250 ML IV SCH (14:47)
[2017-12-16 16:11] VITALS: BP 104/57
[2017-12-16] MEDS: BENZONATATE 100 MG CAPSULE PO SCH ×2 (17:22→23:44)
[2017-12-16] MEDS: MethylPREDNISolone SOD SUCC 125 MG/2 ML VIAL IVP SCH ×2 (17:36→23:43)
[2017-12-16 20:01] LABS: GLUCOMETER DEV NAME(LOC) 6N 2D; GLUCOSE,POINT OF CARE 141 MG/DL (70-110)
[2017-12-16 20:01] LABS: GLUCOMETER DEV NAME(LOC) 6N 2D; GLUCOSE,POINT OF CARE 224 MG/DL (70-110)
[2017-12-16 20:25] VITALS: BP 112/68
[2017-12-16] MEDS: MIRTAZAPINE 15 MG TABLET PO SCH (21:00)
[2017-12-16 21:51] LABS: GLUCOMETER DEV NAME(LOC) 6N 2D; GLUCOSE,POINT OF CARE 188 MG/DL (70-110)
[2017-12-16] MEDS: BUDESONIDE 0.5 MG/2 ML NEB SOLUTION NEB SCH (22:54)
[2017-12-16 23:34] VITALS: BP 136/76
[2017-12-17] MEDS: HYDROCODONE/ACETAMINOPHEN 5-325 MG TABLET PO PRN ×2 (02:54→23:35)
[2017-12-17] MEDS: ALBUTEROL SULFATE 2.5 MG/0.5 ML NEB SOLUTION NEB SCH ×6 (03:03→23:06)
[2017-12-17] MEDS: IPRATROPIUM BROMIDE 0.5 MG/2.5 ML NEB SOLUTION NEB SCH ×6 (03:03→23:06)
[2017-12-17 04:50] VITALS: BP 120/70
[2017-12-17] MEDS: INSULIN LISPRO 100 UNITS/ML SQ PRN ×3 (05:37→20:50)
[2017-12-17] MEDS: MethylPREDNISolone SOD SUCC 125 MG/2 ML VIAL IVP SCH ×4 (05:38→23:34)
[2017-12-17 06:13] LABS: GLUCOMETER DEV NAME(LOC) 6N 1E; GLUCOSE,POINT OF CARE 165 MG/DL (70-110)
[2017-12-17 07:23] VITALS: BP 116/73
[2017-12-17] MEDS: BENZONATATE 100 MG CAPSULE PO SCH ×3 (08:00→23:35)
[2017-12-17] MEDS: MONTELUKAST SODIUM 10 MG TABLET PO SCH (08:39)
[2017-12-17] MEDS: HEPARIN SODIUM,PORCINE 5,000 UNITS/ML VIAL SQ SCH ×3 (08:40→23:35)
[2017-12-17] MEDS: CHOLECALCIFEROL (VIT D3) 1,000 UNITS TABLET PO SCH (08:40)
[2017-12-17] MEDS: PANTOPRAZOLE SODIUM 40 MG DR TABLET PO SCH (08:40)
[2017-12-17] MEDS: DOCUSATE SODIUM 100 MG CAPSULE PO SCH ×2 (08:46→20:49)
[2017-12-17] MEDS: MULTIVITAMINS WITH MINERALS, THERAPEUTIC TABLET PO SCH (08:46)
[2017-12-17] MEDS: ASPIRIN 81 MG CHEWABLE TABLET PO SCH (08:47)
[2017-12-17] MEDS: ARIPiprazole 5 MG TABLET PO SCH (09:00)
[2017-12-17] MEDS: TIOTROPIUM BROMIDE 18 MCG/INH HANDIHALER [5] IH SCH (09:00)
[2017-12-17 12:21] VITALS: BP 131/71
[2017-12-17] MEDS: BUDESONIDE 0.5 MG/2 ML NEB SOLUTION NEB SCH ×2 (12:25→19:05)
[2017-12-17 15:08] LABS: GLUCOMETER DEV NAME(LOC) 6N 2D; GLUCOSE,POINT OF CARE 122 MG/DL (70-110)
[2017-12-17] MEDS: AZITHROMYCIN 500 MG/NS 250 ML IV SCH (16:02)
[2017-12-17 16:20] VITALS: BP 119/72
[2017-12-17 17:43] LABS: GLUCOMETER DEV NAME(LOC) 6N 1E; GLUCOSE,POINT OF CARE 162 MG/DL (70-110)
[2017-12-17 19:58] VITALS: BP 126/70
[2017-12-17] MEDS: MIRTAZAPINE 15 MG TABLET PO SCH (21:00)
[2017-12-17 23:35] VITALS: BP 110/70
[2017-12-17 23:42] LABS: GLUCOMETER DEV NAME(LOC) 6N 2D; GLUCOSE,POINT OF CARE 162 MG/DL (70-110)
[2017-12-18] MEDS: ALBUTEROL SULFATE 2.5 MG/0.5 ML NEB SOLUTION NEB SCH ×4 (03:17→15:00)
[2017-12-18] MEDS: IPRATROPIUM BROMIDE 0.5 MG/2.5 ML NEB SOLUTION NEB SCH ×4 (03:17→15:00)
[2017-12-18] MEDS: PANTOPRAZOLE SODIUM 40 MG DR TABLET PO SCH (04:17)
[2017-12-18 04:43] VITALS: BP 122/71
[2017-12-18] MEDS: MethylPREDNISolone SOD SUCC 125 MG/2 ML VIAL IVP SCH (05:05)
[2017-12-18] MEDS: HYDROCODONE/ACETAMINOPHEN 5-325 MG TABLET PO PRN ×2 (05:05→13:15)
[2017-12-18] MEDS: INSULIN LISPRO 100 UNITS/ML SQ PRN ×2 (05:06→12:08)
[2017-12-18 05:14] LABS: GLUCOMETER DEV NAME(LOC) 6N 1E; GLUCOSE,POINT OF CARE 192 MG/DL (70-110)
[2017-12-18 08:01] VITALS: BP 136/100
[2017-12-18 08:55] LABS: BASOPHILS % (AUTO) 0.2 % (0.0-2.0); EOSINOPHILS % (AUTO) 0 % (1.0-6.0); HEMATOCRIT 41.4 % (36-46); HEMOGLOBIN 13.8 g/dL (12.0-16.0); LYMPHOCYTES # (AUTO) 0.7 K/uL (1.0-4.8); LYMPHOCYTES % (AUTO) 4.8 % (22.0-44.0); MEAN CORPUSCULAR HEMOGLOBIN 30.4 pg (26.0-34.0); MEAN CORPUSCULAR HGB CONC 33.2 G/dL (31.0-37.0); MEAN CORPUSCULAR VOLUME 92 fL (80-100); MONOCYTES # (AUTO) 0.7 K/uL (0.1-1.0); NEUTROPHILS # (AUTO) 13.1 K/uL (1.8-7.7); PLATELET COUNT (AUTO) 318 K/uL (150-450); RED BLOOD CELL COUNT(AUTO) 4.53 MIL/uL (4.00-5.20); RED CELL DISTRIBUTION WIDTH 14.5 % (11.5-14.5)
[2017-12-18 08:58] LABS: ANION GAP -2 mmol/L (8-16); CHLORIDE 99 mmol/L (98-107); CREATININE 0.51 mg/dL (0.60-1.30); GLOMERULAR FILTR. RATE CALC > 60 mL/min (>60); GLUCOSE,RANDOM 189 mg/dL (70-110); POTASSIUM 4.6 mmol/L (3.5-5.1); SODIUM SERUM 139 mmol/L (136-145); UREA NITROGEN, BLOOD 13 mg/dL (7-18)
[2017-12-18] MEDS: ARIPiprazole 5 MG TABLET PO SCH (09:00)
[2017-12-18] MEDS ORDERED: PredniSONE 20 MG TABLET PO SCH (09:00)
[2017-12-18 09:03] LABS: CARBON DIOXIDE 42 mmol/L (22-29)
[2017-12-18] MEDS: ASPIRIN 81 MG CHEWABLE TABLET PO SCH (09:08)
[2017-12-18] MEDS: CHOLECALCIFEROL (VIT D3) 1,000 UNITS TABLET PO SCH (09:08)
[2017-12-18] MEDS: HEPARIN SODIUM,PORCINE 5,000 UNITS/ML VIAL SQ SCH ×2 (09:08→16:28)
[2017-12-18] MEDS: DOCUSATE SODIUM 100 MG CAPSULE PO SCH (09:09)
[2017-12-18] MEDS: BENZONATATE 100 MG CAPSULE PO SCH ×2 (09:09→16:28)
[2017-12-18] MEDS: MONTELUKAST SODIUM 10 MG TABLET PO SCH (09:09)
[2017-12-18] MEDS: MULTIVITAMINS WITH MINERALS, THERAPEUTIC TABLET PO SCH (09:12)
[2017-12-18] MEDS: BUDESONIDE 0.5 MG/2 ML NEB SOLUTION NEB SCH (09:19)
[2017-12-18] MEDS: AZITHROMYCIN 500 MG/NS 250 ML IV SCH (13:07)
[2017-12-18] MEDS: TIOTROPIUM BROMIDE 18 MCG/INH HANDIHALER [5] IH SCH (13:07)
[2017-12-18 14:07] VITALS: BP 133/70
[2017-12-18 16:06] VITALS: BP 118/56
[2017-12-18 20:06] LABS: GLUCOMETER DEV NAME(LOC) 6N 2D; GLUCOSE,POINT OF CARE 287 MG/DL (70-110)
== END 2017-12-18 17:30 | DRG 189 ==
LOC: EMS 10:35 → 3EC 17:59 → UNDOADMIN 17:59 → 6N 18:23
PROVIDERS: ADMIT Internal Medicine; ATTEND Internal Medicine
DX: J96.21 Acute and chronic respiratory failure with hypoxia (principal); E43 Unspecified severe protein-calorie malnutrition; J44.1 Chronic obstructive pulmonary disease with (acute) exacerbation; J44.0 Chronic obstructive pulmonary disease with (acute) lower respiratory infection; I50.9 Heart failure, unspecified; E11.9 Type 2 diabetes mellitus without complications; I11.0 Hypertensive heart disease with heart failure; F17.210 Nicotine dependence, cigarettes, uncomplicated; M25.559 Pain in unspecified hip; F41.9 Anxiety disorder, unspecified; J20.9 Acute bronchitis, unspecified; E55.9 Vitamin D deficiency, unspecified; F25.0 Schizoaffective disorder, bipolar type; J98.4 Other disorders of lung; Z99.81 Dependence on supplemental oxygen; Z91.19 Patient's noncompliance with other medical treatment and regimen; Z88.1 Allergy status to other antibiotic agents; Z91.041 Radiographic dye allergy status; Z88.0 Allergy status to penicillin; Z91.048 Other nonmedicinal substance allergy status; Z79.899 Other long term (current) drug therapy; Z83.3 Family history of diabetes mellitus; Z82.49 Family history of ischemic heart disease and other diseases of the circulatory system; Z71.6 Tobacco abuse counseling; Z68.35 Body mass index [BMI] 35.0-35.9, adult
CPT/HCPCS: 73502; 82306; 84132; 87086; 93005; 93306; 94640; 97163; 99285; G0480; J0456; J1644; J2920; J2930; J7050